=== PATIENT | male | born 1970 | race Caucasian/White ===

== ENCOUNTER 2023-03-02 11:57 | Emergency (ER) | payer MEDICAID, SELFPAY ==
[2023-03-02 12:00] VITALS: BP 146/78; PULSE 82; TEMP 37.5; O2SAT 96; BMI 22.8
[2023-03-02 12:09] VITALS: BP 112/74; PULSE 86; RESP 18; TEMP 37.5; O2SAT 100
--- NOTE | 2023-03-02 12:17 | XRR_ITS ---
PROCEDURE INFORMATION: Exam: XR Chest Exam date and time: 03/02/2023 12:28 PM Age: 52 years old Clinical indication: Pain; Angina pectoris; Prior surgery; Surgery date: 6+ months; Surgery type: Wipple; Patient HX: HX of pancreatic cancer; Additional info: Chest pain TECHNIQUE: Imaging protocol: Radiologic exam of the chest. Views: 2 views. COMPARISON: No relevant prior studies available. FINDINGS: Tubes, catheters and devices: Port catheter tip is in the distal superior vena cava. Lungs: Lungs appear free of acute disease. A granuloma is seen in the left lung. Pleural spaces: Unremarkable. No pleural effusion. No pneumothorax. Heart/Mediastinum: Unremarkable. No cardiomegaly. Bones/joints: Unremarkable. XR/XR chest 2V* [id number] IMPRESSION: No acute findings.
--- NOTE | 2023-03-02 12:24 | CT_ITS ---
WS: [id number] CT CERVICAL SPINE HISTORY: radiculopathy left TECHNIQUE: Contiguous 2.0 mm axial imaging performed through the entire cervical spine. Sagittal and coronal reformats also performed. All CT scans at [facility] use at least one of these dose o ptimization techniques: automated exposure control; mA and/or kV adjustment per patient size (include s targeted exams where dose is matched to clinical indication); or iterative reconstruction. DLP: 232.58 mGy.cm COMPARISON: None available. Normal cervical alignment. Craniocervical junction, atlantodental interval and C1-C2 alignment is nor mal. C2-C3: Normal. C3-C4: Normal. C4-C5: Normal. C5-C6: Focal asymmetric osteophytic ridging with moderate narrowing of the LEFT foramen. There is mil d osteophyte contact and deform the LEFT lateral thecal sac. C6-C7: Normal. C7-T1: Normal. Small bilateral cervical chain osteophytes. RIGHT subclavian Mediport. CT/CT cervical spin wo con* [id number] IMPRESSION: 1. No acute cervical spine fracture. 2. Moderate LEFT foraminal stenosis at C5-6 due to vertebral osteophytes.
--- NOTE | 2023-03-02 12:24 | W.ED.BACK ---
HPI - Back Pain/Injury General: Chief Complaint: Back Pain/Injury Stated Complaint: Lower Back Pain Time Seen by Provider: 03/02/23 12:02 History of Present Illness: 52-year-old male presents emergency department chief complaint of left lateral shoulder and arm pain. Patient reports that he was in in a rested position in which he developed some numbness and pain running down his left arm ending at his elbow. Patient does not endorse any prior history of any heart or lung issues he does report having a history of remote pancreatic cancer in which he has been cleared from for the last 2 years patient reports no shortness of breath during the episode he reports he was at rest in which the pain was worse patient does not endorse any known history underlying heart issues or lung issues reports no prior history of any cardiac work-ups. Patient endorses that the pain is sharp in nature with radiation down the left arm to the left elbow patient does not report any recent trauma or injury noted to that area reporting mild shortness of breath with no other associated symptoms. Associated symptoms: Deny abdominal pain, chills, fatigue, fever(s), nausea or vomiting Review of Systems General: Reports: 10 or more systems reviewed and unremarkable except in HPI and below Const: Denies: fever(s), chills, fatigue or malaise Eyes: Denies: change in vision or blurry vision Card: Reports: chest pain; Denies: palpitations Resp: Reports: dyspnea; Denies: productive cough GI: Denies: abdominal pain, nausea or vomiting : Denies: flank pain Musc: Denies: extremity pain or extremity swelling Skin/Breast: Denies: rash or pruritus Neuro: Denies: headache(s) Psych: Denies: anxiety or depression Nikko/Lymph: Denies: easy bleeding All/Imm: Denies: urticaria, throat swelling or facial swelling Physical Exam Const: COMMON NORMALS: no acute distress, patient oriented x3 and healthy appearing HENMT: COMMON NORMALS: normocephalic and atraumatic HEAD & SCALP: normocephalic and atraumatic Eye: COMMON NORMALS: Equal, round and reactive pupils present and EOMs intact bilaterally PUPIL: Yes Equal, round and reactive pupils present Neck/C-Spine: COMMON NORMALS: full ROM, supple and no JVD Lymph: LYMPHATIC: no lymphadenopathy noted Chest: COMMONS NORMALS: normal inspection of the chest and normal palpation of entire chest wall Resp: COMMON NORMALS: normal respiratory effort, No retractions and clear to auscultation bilaterally EFFORT & INSPECTION: Yes able to speak in complete sentences and Yes symmetric chest movement AUSCULTATION: clear to auscultation bilaterally Cardio: COMMON NORMALS: no JVD, regular rate and regular rhythm RATE: regular rate RHYTHM: regular rhythm GI: COMMON NORMALS: Normal to inspection, nondistended, normoactive bowel sounds present, Soft to palpation and non-tender INSPECTION: Yes normal to inspection PALPATION: Yes Soft to palpation : COMMON NORMALS: Yes no CVA tenderness BLADDER/KIDNEY EXAM: Yes no CVA tenderness Back/Pelvis: COMMON NORMALS: no CVA tenderness Extremity: COMMON NORMALS: normal to inspection and full ROM Neuro: COMMON NORMALS: patient oriented x3, CN's II-XII intact bilaterally, moves all extremities and no focal motor deficits Psych: COMMON NORMALS: mental status grossly normal, Normal thought process present, cooperative and normal affect THOUGHT PROCESS: Normal thought process present Skin: COMMON NORMALS: no rashes or lesions noted GENERAL SKIN EXAM: no rashes or lesions noted Course Vital Signs: Vital signs: Vital Signs Temperature 99.5 F 03/02/23 12:09 Pulse Rate 62 03/02/23 14:09 Respiratory Rate 18 03/02/23 14:09 Blood Pressure 109/62 03/02/23 14:09 Pulse Oximetry 94 03/02/23 14:09 Oxygen Delivery Me thod Room Air 03/02/23 14:09 MDM - Back Pain/Injury Medical Decision Making Lab work and imaging was obtained the patient this reveals elevation of his transaminases AST ALT alkaline phos with this negative lipase due to this CT imaging the abdomen pelvis was obtained this revealed that the patient status post Whipple procedure but no obvious masses or infection was appreciated patient did have what appeared to be a chronic malrotation of the colon with no obvious obstruction. Patient was notified of these findings. Patient's cardiac enzymes came back unremarkable x2 did advise 80s to further follow-up with his oncologist in regards to his elevated liver function test as well as further follow-up with primary care for referral for a stress echocardiogram patient was advised to return the interim if any of his symptoms persist or worse. Labs 03/02/23 12:40 03/02/23 12:40 Radiology Impressions Chest X-Ray 03/02/23 12:17 IMPRESSION: No acute findings. Cervical Spine CT 03/02/23 12:24 IMPRESSION: 1. No acute cervical spine fracture. 2. Moderate LEFT foraminal stenosis at C5-6 due to vertebral osteophytes. Abdomen/Pelvis CT 03/02/23 14:42 IMPRESSION: 1. Mild intrahepatic biliary ductal dilatation and pneumobilia may be postprocedural given nonvisualization of the gallbladder and portion of the pancreas as well as suggested communication of pneumobilia with a small bowel loop, possibly jejunum. These findings could also be infectious or possibly neoplastic. 2. Intestinal malrotation without evidence of bowel obstruction. 3. Additional chronic and incidental findings as above, to include atherosclerosis and prostatomegaly. Findings were discussed with TOBI GTZ at 03/02/2023 4:09 PM CDT, who indicated the patient has a history of pancreatic cancer. Laboratory Results WBC 12.1 10^3/uL (4.0-10.0) H 03/02/23 12:40 RBC 4.65 10^6/uL (4.1-5.3) 03/02/23 12:40 Hgb 14.5 g/dL (11.7-16.6) 03/02/23 12:40 Hct 41.9 % (42.0-52.0) L 03/02/23 12:40 MCV 90.1 fl (80-94) 03/02/23 12:40 MCH 31.2 pg (28.0-34.0) 03/02/23 12:40 MCHC 34.6 g/dL (30.0-36.0) 03/02/23 12:40 RDW 13.2 % (12.1-15.1) 03/02/23 12:40 Plt Count 200 10^3/cmm (130-400) 03/02/23 12:40 MPV 9.3 fL (7.4-10.4) 03/02/23 12:40 Neut % (Auto) 89.7 % 03/02/23 12:40 Lymph % (Auto) 3.5 % 03/02/23 12:40 [place] % (Auto) 6.2 % 03/02/23 12:40 Eos % (Auto) 0.2 % 03/02/23 12:40 Baso % (Auto) 0.2 % 03/02/23 12:40 Neut # (Auto) 10.86 10^3/uL (1.8-7.7) H 03/02/23 12:40 Lymph # (Auto) 0.4 10^3/uL (0.8-4.8) L 03/02/23 12:40 [place] # (Auto) 0.8 10^3/uL (0.2-0.9) 03/02/23 12:40 Eos # (Auto) 0.0 10^3/uL (0.0-0.8) 03/02/23 12:40 Baso # (Auto) 0.0 10^3/uL (0.0-0.1) 03/02/23 12:40 Nucleated RBC % (auto) 0 % 03/02/23 12:40 Nucleated RBCs # 0.0 /100WBC 03/02/23 12:40 Sodium 136 mmol/L (136-145) 03/02/23 12:40 Potassium 3.9 mmol/L (3.5-5.1) 03/02/23 12:40 Chloride 102 mmol/L (98-107) 03/02/23 12:40 Carbon Dioxide 23 mmol/L (22-29) 03/02/23 12:40 Anion Gap 14.9 (5-19) 03/02/23 12:40 BUN 10 mg/dL (6-20) 03/02/23 12:40 Creatinine 0.8 mg/dL (0.7-1.2) 03/02/23 12:40 GFR Calculation 100.7 mL/min (90-130) 03/02/23 12:40 Glucose 111 mg/dL (65-115) 03/02/23 12:40 Calculated Osmolality 282 mOsm/kg (285-295) L 03/02/23 12:40 Calcium 9.1 mg/dL (8.5-10.5) 03/02/23 12:40 Total Bilirubin 1.1 mg/dL (0.15-1.2) 03/02/23 12:40 AST 216 U/L (0-40) H 03/02/23 12:40 ALT 235 U/L (0-41) H 03/02/23 12:40 Alkaline Phosphatase 275 U/L (40-130) H 03/02/23 12:40 Troponin T Baseline 8 ng/L (0-15) 03/02/23 12:40 Troponin T 120 Minute 6.60 ng/L (0-15) 03/02/23 14:40 C-Reactive Protein 5.2 mg/L (0.0-4.9) H 03/02/23 12:40 NT-Pro-B Natriuret Pep 183 pg/mL (0-125) H 03/02/23 12:40 Total Protein 6.7 g/dL (6.6-8.7) 03/02/23 12:40 Albumin 4.4 g/dL (3.5-5.2) 03/02/23 12:40 Globulin 2.3 g/dL (1.3-4.6) 03/02/23 12:40 Lipase 12 U/L (13-60) L 03/02/23 12:40 Discharge Plan Discharge Condition: Stable Prescriptions: No Action No Known Home Medications Coding Level of Care Code ED Loading Unit Operator for Doug Maya
--- NOTE | 2023-03-02 12:37 | ECG_ITS ---
[facility] Test Date: 2023-03-02 Pat Name: Lily Barbosa Department: Room: Gender: Male Computer Security Manager: : 1970 Requested By: Tommy Segundo Order Number: [id number] Ivy MD: Cory De M.D. Measurements Intervals [place] Rate: 69 P: 59 ND: 161 QRS: 32 QRSD: 113 T: 34 QT: 378 QTc: 406 Interpretive Statements SINUS RHYTHM WITH SINUS ARRHYTHMIA INDETERMINATE AXIS MODERATE INTRAVENTRICULAR CONDUCTION DELAY [110+ ms QRS DURATION] No previous ECG available for comparison Electronically Signed On 03-02-2023 20:26:32 CDT by Cory De M.D. [id number]
[2023-03-02] MEDS: sodium chloride 0.9% 500 ML IV (12:40)
[2023-03-02] MEDS: ketorolac 30 mg/mL INJ IVP (12:41)
[2023-03-02] MEDS: ondansetron 2 mg/ML SDV 2 mL 4 MG IVP (12:41)
[2023-03-02 12:46] LABS: Basophils % 0.2 %; Eosinophils % 0.2 %; Hematocrit 41.9 % (42.0-52.0); Hemoglobin 14.5 g/dL (11.7-16.6); Lymphocytes # 0.4 10^3/uL (0.8-4.8); Lymphocytes % 3.5 %; Mean Corpuscular HGB Conc 34.6 g/dL (30.0-36.0); Mean Corpuscular Hemoglobin 31.2 pg (28.0-34.0); Mean Corpuscular Volume 90.1 fl (80-94); Mean Platelet Volume 9.3 fL (7.4-10.4); Monocytes # 0.8 10^3/uL (0.2-0.9); Monocytes % 6.2 %; Neutrophils # 10.86 10^3/uL (1.8-7.7); Neutrophils % 89.7 %; Nucleated Red Blood Cells % 0 %; Platelet Count 200 10^3/cmm (130-400); Red Blood Count 4.65 10^6/uL (4.1-5.3); Red Cell Distribution Width 13.2 % (12.1-15.1); White Blood Count 12.1 10^3/uL (4.0-10.0)
[2023-03-02] MEDS: aspirin 81 mg Chew Tablet 324 MG PO (12:57)
[2023-03-02 13:10] LABS: Troponin(5th) Baseline 8 ng/L (0-15)
[2023-03-02 13:20] LABS: Alanine Aminotransferase 235 U/L (0-41); Albumin Level 4.4 g/dL (3.5-5.2); Alkaline Phosphatase 275 U/L (40-130); Anion Gap 14.9 (5-19); Aspartate Amino Transferase 216 U/L (0-40); Blood Urea Nitrogen 10 mg/dL (6-20); C Reactive Protein 5.2 mg/L (0.0-4.9); Calcium 9.1 mg/dL (8.5-10.5); Carbon Dioxide 23 mmol/L (22-29); Chloride 102 mmol/L (98-107); Globulin 2.3 g/dL (1.3-4.6); Glomerular Filtration Rate 100.7 mL/min (90-130); Glucose 111 mg/dL (65-115); NT Pro B Type Natriuretic Pept 183 pg/mL (0-125); Osmolality Calculated 282 mOsm/kg (285-295); Potassium 3.9 mmol/L (3.5-5.1); Sodium 136 mmol/L (136-145); Total Bilirubin 1.1 mg/dL (0.15-1.2); Total Protein 6.7 g/dL (6.6-8.7)
[2023-03-02 13:37] VITALS: BP 114/70; O2SAT 94
[2023-03-02 14:09] VITALS: BP 109/62; PULSE 62; RESP 18; O2SAT 94
--- NOTE | 2023-03-02 14:12 | ECG_ITS ---
[facility] Test Date: 2023-03-02 Pat Name: Lily Barbosa Department: Room: Gender: Male Senior Center Director: : 1970 Requested By: Tommy Segundo Order Number: [id number] Ivy MD: Cory De M.D. Measurements Intervals [place] Rate: 53 P: 63 MI: 161 QRS: 30 QRSD: 114 T: 30 QT: 419 QTc: 395 Interpretive Statements SINUS BRADYCARDIA MODERATE INTRAVENTRICULAR CONDUCTION DELAY [110+ ms QRS DURATION] Compared to ECG 03/02/2023 12:37:40 Sinus rhythm no longer present Sinus arrhythmia no longer present Indeterminate axis no longer present Electronically Signed On 03-02-2023 20:30:31 CDT by Cory De M.D. [id number]
--- NOTE | 2023-03-02 14:42 | CTR_ITS ---
PROCEDURE INFORMATION: Exam: CT Abdomen And Pelvis With Contrast Exam date and time: 03/02/2023 3:32 PM Age: 52 years old Clinical indication: Abdominal pain; Generalized; Additional info: Elevated lfts with pain TECHNIQUE: Imaging protocol: Computed tomography of the abdomen and pelvis with contrast. Radiation optimization: All CT scans at this facility use at least one of these dose optimization techniques: automated exposure control; mA and/or kV adjustment per patient size (includes targeted exams where dose is matched to clinical indication); or iterative reconstruction. Contrast material: OMNI 350; Contrast volume: 100 ml; Contrast route: INTRAVENOUS (IV); REPORTING DATA: Count of CT and Cardiac NM exams in prior 12 months: This patient has received 0 known CTs and 0 known cardiac nuclear medicine studies in the 12 months prior to the current study. COMPARISON: CR XR chest 2V* [id number] 03/02/2023 12:28 PM RADIATION DOSE METRICS: Total DLP (mGy-cm): 473.93 FINDINGS: Lungs: Mild linear atelectasis versus scarring at the basal left lower lobe. Liver: Normal. No mass. Gallbladder and bile ducts: The gallbladder is not visualized and may be surgically absent. Mild intrahepatic biliary ductal dilatation and left-sided pneumobilia. Extrahepatic biliary system not confidently visualized. Suggested communication of pneumobilia with small bowel loop, possibly jejunum, on axial images 19-21 of series 3 and sagittal image 44 of series 6. Pancreas: No ductal dilatation. Normal appearance of the body and tail. Nonvisualized head and uncinate process, possibly surgically removed. Spleen: Normal. No splenomegaly. Adrenal glands: Normal. No mass. Kidneys and ureters: Left renal cyst is present, as well as other subcentimeter hypodensities which are too small to characterize. Otherwise unremarkable. Stomach and bowel: There is intestinal malrotation. No bowel dilatation to suggest obstruction. No evidence of mucosal thickening. Appendix: No evidence of appendicitis. Intraperitoneal space: No free air. No significant fluid collection. Surgical suture material present at the anterior upper abdomen. Vasculature: Moderate systemic atherosclerotic calcification without aortic aneurysm. Lymph nodes: No suspicious enlarged lymph nodes. Urinary bladder: Urinary bladder is unremarkable. Reproductive: Enlarged prostate measures 5.3 cm in transverse dimension. Bones/joints: No acute fracture. Mild degenerative changes along the spine. Small nonaggressive sclerotic focus of the right ilium. Soft tissues: Small right inguinal hernia contains fat and small reniform soft tissue focus compatible with lymph node. Small fat containing left periumbilical hernia. Postsurgical scarring along the midline ventral abdominal wall. CT/CT abdomen pelvis w con* [id number] IMPRESSION: 1. Mild intrahepatic biliary ductal dilatation and pneumobilia may be postprocedural given nonvisualization of the gallbladder and portion of the pancreas as well as suggested communication of pneumobilia with a small bowel loop, possibly jejunum. These findings could also be infectious or possibly neoplastic. 2. Intestinal malrotation without evidence of bowel obstruction. 3. Additional chronic and incidental findings as above, to include atherosclerosis and prostatomegaly. Findings were discussed with TOBI GTZ at 03/02/2023 4:09 PM CDT, who indicated the patient has a history of pancreatic cancer.
[2023-03-02] MEDS: iohexol 350 mg/mL 500 mL Btl (per mL) IV (15:35)
[2023-03-02 16:00] LABS: Lipase 12 U/L (13-60)
== END 2023-03-02 16:56 | disposition home or self-care (01) ==
PROVIDERS: Emergency Provider Emergency Medicine
DX: M25.78 Osteophyte, vertebrae (principal); M48.02 Spinal stenosis, cervical region
CPT/HCPCS: 36415; 71046; 72125; 74177; 80053; 83690; 83880; 84484; 85025; 86140; 93005; 96374; 96375; 99285; J1885; J2405; J7040; Q9967